=== PATIENT | male | born 1965 | race Caucasian/White ===

== ENCOUNTER 2021-11-02 11:05 | Emergency (ER) | payer OTHER, SELFPAY ==
--- NOTE | 2021-11-02 11:06 | ED.ANIMALBIT ---
HPI - Animal Bite General Chief Complaint: Animal Bite Stated Complaint: Dog bite Time Seen by Provider: 11/02/21 11:06 Source: patient Mode of arrival: ambulatory Limitations: no limitations History of Present Illness HPI narrative: Mr. Saldivar patient presents to clinic today with complaints of a dog bite to the left hand that occurred approximately 50 minutes prior to arrival. He reports he was at a friend's house and reached down to pet the dog and the dog lunged and bit him. He has a total of 5-6 puncture wounds to his left hand. He has 3 wounds to the dorsal hand and 2-3 wounds to the palm. Worst puncture is to the palm of the hand with some soft tissue swelling. Unknown tetanus status. Unknown dog vaccination. Reports he ran his hand under cold water while was bleeding but no other cleaning was completed. Related Data Allergies Allergy/AdvReac Type Severity Reaction Status Date / Time hydromorphone [From Dilaudid] Allergy Unknown Verified 11/02/21 11:15 meperidine [From Demerol] Allergy Unknown Verified 11/02/21 11:15 Review of Systems Review of Systems: Pertinent positives per HPI. Patient denies any fever, chills, rash, headache, visual changes, dizziness, cough, runny nose, sore throat, shortness of breath, chest pain, palpitations, nausea, vomiting, diarrhea, constipation, abdominal pain, or any urinary issues. PMFSH Comments At the time of my signature, I reviewed and agree with the nursing past medical, surgical, social, and family history. There is no relevant family history pertinent to the patient complaint. Exam Narrative: General: Well-developed, well nourished, in no apparent distress Cardio: Regular rate and rhythm, s1 and s2 normal, no murmur appreciated. Resp: Clear to auscultation bilaterally, no rhonchi, rales, wheezing or rubs. Integumentary: Mims, warm, dry. As 3 puncture wounds to the dorsal left hand just below the second digit and near the thumb, the puncture wounds to the palm of the hand located both of them sagittal joint, and mid palm. Bleeding controlled. Course Course Emergency Course: Portions of this record may have been created with voice recognition software. Level of Care: Express Care Visit Reevaluation(s) Reevaluation #1: Pain Date: 11/02/21 Time: 11:50 Reevaluation #2: No change in pain after Toradol injection. No adverse reaction Vital Signs Vital signs: Vital Signs Temperature 36.7 C 11/02/21 11:11 Pulse Rate 83 11/02/21 11:11 Respiratory Rate 16 11/02/21 11:11 Blood Pressure 157/90 H 11/02/21 11:11 Pulse Oximetry 96 11/02/21 11:11 Temperature 36.7 C 11/02/21 11:11 Pulse Rate 83 11/02/21 11:11 Respiratory Rate 16 11/02/21 11:11 Blood Pressure 157/90 H 11/02/21 11:11 Pulse Oximetry 96 11/02/21 11:11 Vital signs reviewed MDM - Animal Bite MDM Narrative Medical decision making narrative: At the time of visit, exam was completed and there was no need for suturing as largest puncture wound was less than 0.[address] patient on Augmentin for prophylaxis and give him a tetanus shot in the clinic today. Wound was cleansed with technic care and dressed appropriately with triple antibiotic ointment and Band-Aids. Patient able to flex and extend his fingers and make a good tight fist indicating no tendon involvement. Has full range of motion of hand. Differential Diagnosis Differential diagnosis: Likely rabies contact Discharge Plan Discharge Clinical Impression: Puncture wound Dog bite Qualifiers: Encounter type: initial encounter Qualified Code(s): W54.0XXA - Bitten by dog, initial encounter Condition: Stable Instructions: Animal Bite (ED), Puncture Wound (ED) Additional Instructions: Toradol 60 mg IM given in the clinic today for pain. Boostrix (Tdap) given in the clinic today. Augmentin as prescribed. Leave bandage on for 24 hours then may remove and apply band aide covering as needed. Tylenol?Motrin as n
[2021-11-02 11:11] VITALS: BP 157/90; PULSE 83; RESP 16; TEMP 36.7; O2SAT 96
[2021-11-02] MEDS: TETANUS,DIPHTHERIA,AC PERTUSSIS ADULT (0.5 ML) BOOSTRIX IM (11:30)
[2021-11-02] MEDS: KETOROLAC (*BKC) 60 MG/2 ML VIAL IM (11:30)
== END 2021-11-02 11:57 | disposition home or self-care (01) ==
LOC: EXPGLEN 11:09
PROVIDERS: Emergency Provider Nurse Practitioner Family
DX: S61.432A Puncture wound without foreign body of left hand, initial encounter (principal); W54.0XXA Bitten by dog, initial encounter; Z23 Encounter for immunization
CPT/HCPCS: 90471; 90715; 96372; 99213; G0463; J1885

== ENCOUNTER 2024-09-04 10:13 | Emergency (ER) | payer OTHER, SELFPAY ==
[2024-09-04 10:23] VITALS: BP 155/100; PULSE 83; RESP 16; TEMP 36.3; O2SAT 98
--- NOTE | 2024-09-04 10:34 | ED_ITS ---
HPI - URI/Sore Throat General Chief Complaint: Upper Respiratory Infection Stated Complaint: Sinus Infection Symptoms Time Seen by Provider: 09/04/24 10:20 Source: patient and RN notes reviewed Mode of arrival: ambulatory Limitations: no limitations History of Present Illness HPI Narrative: Patient presents today with a 10 day history of frontal headache, nasal congestion and sinus pressure, sore throat, postnasal drip. Denies cough or fever. He has tried Mucinex DM, NyQuil, and sinus rinses with short-term relief. Related Data Allergies Allergy/AdvReac Type Severity Reaction Status Date / Time hydromorphone (From Dilaudid) Allergy Unknown Verified 09/04/24 10:20 meperidine (From Demerol) Allergy Unknown Verified 09/04/24 10:20 Review of Systems Review of Systems: CONSTITUTIONAL: Denies body aches, fever, chills, or sweats. EYES: Denies visual changes, redness, or discharge. ENT: Denies rhinorrhea, or otalgia.+ congestion, sinus pressure, postnasal drip, sore throat CARDIOVASCULAR: Denies chest pain, palpitations, or edema. RESPIRATORY: Denies cough or dyspnea. GASTROINTESTINAL: Denies abdominal pain, nausea, vomiting, or diarrhea. GENITOURINARY: Denies dysuria or hematuria. SKIN: Denies rash, itching, or wounds. MUSCULOSKELETAL: Denies back pain, joint pain, or myalgia. NEUROLOGIC: Denies numbness, tingling, or weakness.+ frontal headache PSYCH: Denies depression or anxiety. PMFSH Comments At time of signature, I have reviewed and agree with nursing past medical, surgical, social and family history unless otherwise noted. Please see nursing chart for further information. There is no relevant family history pertinent to the presenting complaint Exam Narrative: GENERAL: Well-appearing, well-nourished, and in no acute distress. HEAD: Normocephalic, atraumatic. EYES: EOMI. No redness or drainage. Conjunctivae normal. ENT: Mucous membranes pink and moist. Nares mildly congested with rhinorrhea. Maxillary sinuses tender to palpation. TMs normal bilaterally. Throat erythematous posteriorly without edema or exudate. Uvula midline. NECK: Normal AROM. Supple. No lymphadenopathy. CHEST: No respiratory distress. Clear to auscultation. HEART: Regular rate and rhythm. No murmur appreciated. EXTREMITIES: Normal range of motion. No edema. SKIN: Warm, dry, no rash. Capillary refill normal. Normal skin turgor. NEURO: No focal deficits. Alert and oriented x3. Gait steady. PSYCH: Normal affect. No signs of depression or anxiety. Course Course Level of Care: Express Care Visit Vital Signs Vital signs: Vital Signs Temperature 97.4 F L 09/04/24 10:23 Pulse Rate 83 09/04/24 10:23 Respiratory Rate 16 09/04/24 10:23 Blood Pressure 155/100 H 09/04/24 10:23 Pulse Oximetry 98 09/04/24 10:23 Temperature 97.4 F L 09/04/24 10:23 Pulse Rate 83 09/04/24 10:23 Respiratory Rate 16 09/04/24 10:23 Blood Pressure 155/100 H 09/04/24 10:23 Pulse Oximetry 98 09/04/24 10:23 Reviewed MDM - URI/Sore Throat MDM Narrative Medical decision making narrative: Patient will be started on a course of Augmentin for sinusitis. Discussed [id number] medication as well. Anticipatory guidance given. Differential Diagnosis Differential diagnosis: Likely upper respiratory infection, sinusitis and viral infection Critical Care Time Critical Care Time Critical Care Time: No Discharge Plan Discharge Clinical Impression: Sinusitis Qualifiers: Sinusitis location: maxillary Chronicity: acute Recurrence: non-recurrent Qualified Code(s): J01.00 - Acute maxillary sinusitis, unspecified Patient Disposition: Home, Self-Care Condition: Stable Instructions: Antibiotic Form, Sinusitis (ED) Additional Instructions: Please take the Augmentin as prescribed until gone. Continue apir-znm-euxpctc medication as needed. Follow-up with your PCP in 3 days if symptoms are not improving. Your blood pressure was elevated above 120/80 today at Urgent Care. This puts you above the threshold for follow up. Please schedule a followup visit with your personal physician as soon as possible, for further evaluation and treatment. Even blood pressure exceeding 120/80 may indicate pre-hypertension. Patient Language: Nicaraguan Prescriptions: New amoxicillin-pot clavulanate 875-125 mg tablet 1 tablet PO Q12H 7 Days Qty: 14 0RF Follow-up/Referrals: PHYSICIAN,BILLBOARD ERECTOR [Primary Care Provider] - Time of Disposition: 10:37
== END 2024-09-04 10:43 | disposition home or self-care (01) ==
PROVIDERS: Emergency Provider Nurse Practitioner
DX: J01.00 Acute maxillary sinusitis, unspecified (principal)
CPT/HCPCS: 99213; G0463

== ENCOUNTER 2024-09-17 16:34 | Emergency (ER) | payer OTHER, SELFPAY ==
--- NOTE | 2024-09-17 16:48 | ED.URI ---
HPI - URI/Sore Throat General Chief Complaint: Upper Respiratory Infection Stated Complaint: Sinus Infection Symptoms Time Seen by Provider: 09/17/24 16:48 Source: patient Mode of arrival: ambulatory Limitations: no limitations History of Present Illness HPI Narrative: Tj is a 58-year-old male patient presenting to the clinic today with complaints of possible sinus infection. He reports he has had symptoms for 3 weeks. Was recently seen approximately a week and a half ago and given 7 day course of Augmentin. He reports his symptoms started to improve while taking the medication however soon as he stopped the medication his symptoms came back. He did see his primary care doctor and they told him just to do Flonase. He reports that he has got yellow sinus drainage and has a lot of pressure. MD elicited complaint: nasal congestion and sinus pain Related Data Allergies Allergy/AdvReac Type Severity Reaction Status Date / Time hydromorphone (From Dilaudid) Allergy Unknown Verified 09/04/24 10:20 meperidine (From Demerol) Allergy Unknown Verified 09/04/24 10:20 Review of Systems Review of Systems: Pertinent positives per HPI. Patient denies any fever, chills, rash, visual changes, dizziness, cough, shortness of breath, chest pain, palpitations, nausea, vomiting, diarrhea, constipation, abdominal pain, or any urinary issues. PMFSH Comments At the time of my signature, I reviewed and agree with the nursing past medical, surgical, social, and family history. There is no relevant family history pertinent to the patient complaint. Exam Narrative: General: Well-developed, well nourished, in no apparent distress Head: Normocephalic, atraumatic Eyes: Pupils equally round and reactive to light bilaterally, EOM intact, sclera and conjunctive clear, no discharge, lids normal Ears: TMs intact and congested, ear canals clear, no drainage, grossly hearing normal. Nose: Nares patent, yellow nasal discharge, moderate inflammation, maxillary sinus tenderness. Mouth: Oral pharynx without lesions or masses, good dentition, MMM. PND Neck: Supple, trachea midline, no enlargement of anterior or posterior cervical nodes, no thyroid masses or goiter palpable. Cardio: Regular rate and rhythm, s1 and s2 normal, no murmur appreciated. Resp: Clear to auscultation bilaterally, no rhonchi, rales, wheezing or rubs Course Course Emergency Course: Portions of this record may have been created with voice recognition software. Level of Care: Express Care Visit Vital Signs Vital signs: Vital Signs Temperature 36.7 C 09/17/24 16:51 Pulse Rate 102 H 09/17/24 16:51 Respiratory Rate 16 09/17/24 16:51 Blood Pressure 155/95 H 09/17/24 16:51 Pulse Oximetry 99 09/17/24 16:51 Temperature 36.7 C 09/17/24 16:51 Pulse Rate 102 H 09/17/24 16:51 Respiratory Rate 16 09/17/24 16:51 Blood Pressure 155/95 H 09/17/24 16:51 Pulse Oximetry 99 09/17/24 16:51 Vital signs reviewed MDM - URI/Sore Throat MDM Narrative Medical decision making narrative: At the time of visit patient is resting comfortably on the exam table. Patient appears to be nontoxic. Plan: I suspect patient has acute bacterial rhinosinusitis. Prescription for Augmentin and prednisone was sent to the pharmacy. Supportive measures were discussed with the patient and they voiced understanding discharge instructions and agrees to treatment plan. Return precautions reviewed Differential Diagnosis Differential diagnosis: Likely upper respiratory infection, otitis media, sinusitis, viral infection, bronchitis, influenza, pharyngitis and other (COVID) Discharge Plan Discharge Clinical Impression: Acute bacterial rhinosinusitis Patient Disposition: Home, Self-Care Condition: Stable Instructions: Antibiotic Form, Rhinosinusitis (ED) Additional Instructions: Take prescription medications only as prescribed-Augmentin and prednisone Increase fluids and stay well hydrated Tylenol/motrin for pain/fever Flonase and OTC antihistamines as directed Vicks vapor rub to open sinuses Sinus rinses for congestion Cepacol spray, cough drops, throat lozenges, warm tea with honey/lemon, gargle salt water to soothe throat BRAT diet for diarrhea Clear liquids x 24 hours then advance as tolerated for nausea/vomiting Go to the ED if you develop a worsening in your condition- high fever not controlled by Tylenol or Motrin, dehydration, weakness, lethargy, shortness of breath, or chest pain. Follow up with your PCP in 3-5 days if symptoms persist. Patient Language: Togolese Prescriptions: New amoxicillin-pot clavulanate 875-125 mg tablet 1 tablet PO Q12H 10 Days Qty: 20 0RF prednisone 20 mg tablet 40 mg PO DAILY 5 Days Qty: 10 0RF No Action amoxicillin-pot clavulanate 875-125 mg tablet 1 tablet PO Q12H 7 Days Qty: 14 0RF Follow-up/Referrals: PHYSICIAN,KENNEL ASSISTANT [Primary Care Provider] - Time of Disposition: 16:55 Quality NIHSS Nursing Documentation ED NIHSS nursing documentation: reviewed/agree
[2024-09-17 16:51] VITALS: BP 155/95; PULSE 102; RESP 16; TEMP 36.7; O2SAT 99
== END 2024-09-17 16:59 | disposition home or self-care (01) ==
PROVIDERS: Emergency Provider Nurse Practitioner Family
DX: J01.90 Acute sinusitis, unspecified (principal)
CPT/HCPCS: 99213; G0463

== ENCOUNTER 2024-10-04 16:03 | Emergency (ER) | payer OTHER, SELFPAY ==
--- NOTE | ~2024-10-04 | XR_ITS ---
EXAMINATION: XR chest 2V DATE: 10/04/2024 16:22 INDICATION: 2 months of cough and congestion TECHNIQUE: PA and lateral views of the chest were obtained. COMPARISON: None FINDINGS: The lungs are clear with no focal airspace opacities, pulmonary edema, pleural effusion or pneumothor ax. The cardiomediastinal silhouette is normal. Mild thoracic spondylosis. IMPRESSION: 1. No acute cardiopulmonary disease. Reviewed, dictated and finalized at location A. WELT SEWING MACHINE OPERATOR
--- NOTE | 2024-10-04 16:06 | ED.URI ---
HPI - URI/Sore Throat General Chief Complaint: Upper Respiratory Infection Stated Complaint: SINUS/COUGH/CONGESTION Source: patient and RN notes reviewed Mode of arrival: ambulatory Limitations: no limitations History of Present Illness HPI Narrative: Patient is a 58-year-old male who presents to the [facility] with complaints of sinus pain and pressure and cough that has been ongoing. Patient states that he was seen on 09/04 for sinus infection and was prescribed a 7 day course of amoxicillin. He states that his symptoms did not improve and he was seen here on 09/17/2024 for similar symptoms and was started on a 10 day course of Augmentin and prednisone. He states that his symptoms had improved after that visit. However, over the weekend, the sinus pain and pressure returned, along with nasal congestion and a cough. He reports a frequent nonproductive cough that is occasionally productive with yellow sputum. Denies chest pain or shortness of breath. Denies recent fever. Related Data Allergies Allergy/AdvReac Type Severity Reaction Status Date / Time hydromorphone (From Dilaudid) Allergy Unknown Verified 10/04/24 16:15 meperidine (From Demerol) Allergy Unknown Verified 10/04/24 16:15 Review of Systems Review of Systems: CONSTITUTIONAL: Denies fever, chills, or sweats. EYES: Denies visual changes, redness, or discharge. ENT: Denies otalgia and sore throat. Reports nasal congestion and sinus pressure. CARDIOVASCULAR: Denies chest pain, palpitations, or edema. RESPIRATORY: Reports cough but denies dyspnea. GASTROINTESTINAL: Denies abdominal pain, nausea, vomiting, or diarrhea. GENITOURINARY: Denies dysuria or hematuria. SKIN: Denies rash or itching. MUSCULOSKELETAL: Denies back pain, joint pain, or myalgia. NEUROLOGIC: Denies headache, numbness, or weakness. Pertinent positives per HPI. PMFSH Comments At the time of my signature, I reviewed and agree with the nursing past medical, surgical, social, and family history. There is no relevant family history pertinent to the patient complaint. Exam Narrative: GENERAL: This is a well-nourished, well-developed patient, in no apparent distress. HEAD: normocephalic, atraumatic. EYES: Sclera clear/white. Vision is grossly intact. EARS: External ears normal, auditory canals clear and without drainage, TMs normal without perforation. Hearing grossly intact. NOSE: External nose normal with positive congestion. Sinus tenderness. THROAT: Mucous membranes moist, posterior pharynx clear. NECK: Neck supple, non-tender without lymphadenopathy, masses or thyromegaly. CARDIOVASCULAR: Regular rate and rhythm without murmurs, gallops, or rubs. RESPIRATORY: Clear to auscultation. Breath sounds equal bilaterally. No wheezes, rales, or rhonchi. GASTROINTESTINAL: Abdomen soft, non-tender, nondistended. Bowel sounds are active. No hepato-splenomegaly, or palpable masses. No guarding. SKIN: warm, intact with no suspicious lesions or rash, good texture and turgor. NEURO: awake, alert, and oriented to person, place and time. There were no obvious focal neurologic abnormalities. Course Course Level of Care: Express Care Visit Vital Signs Vital signs: Vital Signs Temperature 97.3 F L 10/04/24 16:14 Pulse Rate 77 10/04/24 16:14 Respiratory Rate 16 10/04/24 16:14 Blood Pressure 149/101 H 10/04/24 16:14 Pulse Oximetry 100 10/04/24 16:14 Temperature 97.3 F L 10/04/24 16:14 Pulse Rate 77 10/04/24 16:14 Respiratory Rate 16 10/04/24 16:14 Blood Pressure 149/101 H 10/04/24 16:14 Pulse Oximetry 100 10/04/24 16:14 Reviewed MDM - URI/Sore Throat MDM Narrative Medical decision making narrative: Go to the ER for any new or worsening symptoms. Avoid smoking/second-hand smoke. Continue to take Tylenol or Motrin for pain. Increase your Vitamin C intake. Use a humidifier or vaporizer at night. Take Medications as prescribed. Drink plenty of water. 8-10 glasses per day. Use flonase 2 times per day for 5 days then as needed Take mucinex 2 times per day and be sure to take with 8oz of water. Follow up with Primary provider if not getting better. Differential Diagnosis Differential diagnosis: Likely upper respiratory infection, sinusitis, viral infection and other (pneumonia) Imaging Data Attestation: I personally reviewed and interpreted this imaging study as follows: Radiologist's impression: [address] [place] [address] XRay Report Signed Patient: Tj Saldivar : 1965 MR#: [id number] Age: 58 Acct:[id number] Loc: [id number] ADM Date: 10/04/24Attending Dr: Ordering Physician: Betty Higgins APRN Date of Service: 10/04/24 Procedure(s): XR chest 2V Accession Number(s): [id number] cc: Betty Higgins APRN; Tierney,Getachew~ EXAMINATION: XR chest 2V DATE: 10/04/2024 16:22 INDICATION: 2 months of cough and congestion TECHNIQUE: PA and lateral views of the chest were obtained. COMPARISON: None FINDINGS: The lungs are clear with no focal airspace opacities, pulmonary edema, pleural effusion or pneumothorax. The cardiomediastinal silhouette is normal. Mild thoracic spondylosis. IMPRESSION: 1. No acute cardiopulmonary disease. Reviewed, dictated and finalized at location A. Y LEVEL MANAGER Please be advised this is a medical document. It is intended for [id number] communication. It is written in medical language and may contain unfamiliar abbreviations or verbiage. Medical documents are intended to carry relevant information, facts as evident, and the clinical opinion of the practitioner at the time of the encounter. This report may have been done utilizing a voice recognition system. Attempts have been made to correct errors. However, there may be uncorrected grammatical, spelling, and recognition errors present. The file time of this note does not necessarily represent the time of service. Dictated By: Scotty Dorsey MD 10/04/24 1625 Signed By: <Electronically signed by Scotty Dorsey MD in OV> 10/04/24 1626 Critical Care Time Critical Care Time Critical Care Time: No Discharge Plan Discharge Clinical Impression: Acute bacterial sinusitis Patient Disposition: Home, Self-Care Condition: Stable Instructions: Antibiotic Form, Sinusitis (ED) Additional Instructions: Go to the ER for any new or worsening symptoms. Avoid smoking/second-hand smoke. Continue to take Tylenol or Motrin for pain. Increase your Vitamin C intake. Use a humidifier or vaporizer at night. Take Medications as prescribed. Drink plenty of water. 8-10 glasses per day. Use flonase 2 times per day for 5 days then as needed Take mucinex 2 times per day and be sure to take with 8oz of water. Follow up with Primary provider if not getting better. Patient Language: Dutch Prescriptions: New doxycycline hyclate 100 mg capsule 100 mg PO BID 10 Days Qty: 20 0RF fluticasone propionate [24 Hour Allergy Relief] 50 mcg/actuation spray,suspension 1 spray intranasal DAILY Qty: 16 0RF Rx Instructions: administer into each nostril No Action amoxicillin-pot clavulanate 875-125 mg tablet 1 tablet PO Q12H 7 Days Qty: 14 0RF amoxicillin-pot clavulanate 875-125 mg tablet 1 tablet PO Q12H 10 Days Qty: 20 0RF prednisone 20 mg tablet 40 mg PO DAILY 5 Days Qty: 10 0RF Follow-up/Referrals: Tierney,Getachew [Other] Time of Disposition: 16:32
[2024-10-04 16:14] VITALS: BP 149/101; PULSE 77; RESP 16; TEMP 36.3; O2SAT 100
== END 2024-10-04 16:34 | disposition home or self-care (01) ==
PROVIDERS: Emergency Provider Nurse Practitioner
DX: J01.90 Acute sinusitis, unspecified (principal)
CPT/HCPCS: 71046; 99213; G0463